=== PATIENT | female | born 1975 | race Caucasian/White ===

== ENCOUNTER 2019-07-14 19:29 | Emergency (ER) | payer MEDICAID ==
[2019-07-14] MEDS ORDERED: KETOROLAC 60 MG/2 ML VIAL IM STA (19:46)
--- NOTE | 2019-07-14 21:10 | Emergency Department Record ---
History of Present Illness - General Chief Complaint: General Stated Complaint: BODY ACHES, Time Seen by Provider: 07/14/19 19:46 Source: Patient Mode of Arrival: Ambulatory Limitations: No limitations - History of Present Illness Initial comments: Pt to the ED with complaint of "Pain all over". Pt is under the care of her family doctor for this pain. She has meds at home but due to recent change in dosing she is out of meds. There is no new pains. No fever or chills, no CASTRO, weakness, CP, MEEK, cough. She is able to call her doctor in the AM to discuss plan for pain control. - [place] Coma Scale Eye Response: (4) Open spontaneously Motor Response: (6) Obeys commands Verbal Response: (5) Oriented [place] Total: 15 - Related Data Home Medications Medication Instructions Recorded Confirmed Last Taken Meloxicam 7.5 mg PO BID 07/14/19 07/14/19 Unknown Metronidazole [Flagyl] 1 tab PO BID 07/14/19 07/14/19 Unknown Tramadol HCl [Ultram] 100 mg PO TID 07/14/19 07/14/19 Unknown Allergies Allergy/AdvReac Type Severity Reaction Status Date / Time No Known Drug Allergies Allergy Verified 07/14/19 20:09 Travel Screening - Travel/Exposure Within Last 30 Days Have you traveled within the last 30 days?: No - Travel/Exposure Within Last Year Have you traveled outside the [place] in the last year?: No - Additonal Travel Details Have you been exposed to anyone with a communicable illness?: No - Travel Symptoms Symptom Screening: None Review of Systems Constitutional: Denies: Chills, Fever Eyes: Denies: Eye discharge, Eye pain, Vision change ENT: Denies: Congestion, Throat pain Respiratory: Denies: Cough, Dyspnea Cardiovascular: Denies: Arrhythmia, Chest pain, Syncope Endocrine: Denies: Fatigue, Polyuria Gastrointestinal: Denies: Abdominal pain, Diarrhea, Nausea, Vomiting Musculoskeletal: Reports: As per HPI, Arthralgia Skin: Denies: Rash Neurological: Denies: Headache, Tingling, Tremors, Weakness Psychiatric: Denies: Anxiety Hematological/Lymphatic: Denies: Anemia Past Medical History - SOCIAL HISTORY Smoking Status: Current every day smoker Alcohol Use: None Drug Use: None - RESPIRATORY Hx Respiratory Disorders: No - CARDIOVASCULAR Hx Cardio Disorders: No - NEURO Hx Neuro Disorders: No Comment:: chronic pain - GI Hx GI Disorders: No - Hx Genitourinary Disorders: No - ENDOCRINE Hx Endocrine Disorders: No - MUSCULOSKELETAL Hx Musculoskeletal Disorders: No - PSYCH Hx Psych Problems: No - HEMATOLOGY/ONCOLOGY Hx Hematology/Oncology Disorders: No Family Medical History Any Significant Family History?: No Physical Exam - General General Appearance: Alert, Oriented x3, Cooperative, Mild distress - Head Head exam: Atraumatic - Eye Eye exam: PERRL, EOMI, Nystagmus - ENT ENT exam: Mucous membranes moist, TM's normal bilaterally Ear exam: Normal external inspection Nasal Exam: Normal inspection Mouth exam: Normal external inspection - Neck Neck exam: Normal inspection, Full ROM - Respiratory Respiratory exam: Normal lung sounds bilaterally. negative: Prolonged expiratory, Rhonchi, Wheezes - Cardiovascular Cardiovascular Exam: Regular rate, Normal rhythm. negative: Tachycardia Peripheral Pulses: 2+: Radial (R), Radial (L) - GI/Abdominal GI/Abdominal exam: Soft, Normal bowel sounds. negative: Tenderness - Extremities Extremities exam: Normal inspection. negative: Joint swelling - Back Back exam: Reports: Normal inspection. Denies: Paraspinal tenderness - Neurological Neurological exam: Alert, Normal gait, Oriented X3 - Psychiatric Psychiatric exam: Anxious - Skin Skin exam: Normal color. negative: Rash Course Vital Signs 07/14/19 19:39 Temperature 98.8 F Pulse Rate 90 Respiratory 18 Rate Blood Pressure 114/77 Pulse Ox 99 - Reevaluation(s) Reevaluation #1: 07/14/19 21:21 Discussed chronic pain treatment and the need to allow her primary doctor to manage. She agrees. Given IM Toradol with great response! Pain much better and wants to go home. Agrees to see her doctor tomorrow. Disposition Disposition: Discharge Clinical Impression: Chronic pain Disposition: Home, Self-Care Condition: (2) Stable Instructions: Chronic Pain (ED) Additional Instructions: See you doctor tomorrow to discuss continued pain control. Return to the ED as needed. Forms: Patient Portal Access Time of Disposition: 21:09 Quality - Quality Measures Quality Measures: N/A - Blood Pressure Screening Does Patient Have Any of the Following: No Blood Pressure Classification: Normal BP Reading Systolic Measurement: 114 Diastolic Measurement: 77 Screening for High Blood Pressure: < Normal BP, F/U Not Required > [[id number]]
== END 2019-07-14 21:15 | disposition home or self-care (01) ==
LOC: ER 19:29
DX: G89.29 Other chronic pain (principal)
CPT/HCPCS: 96372; 99283; J1885